=== PATIENT | female | born 1960 | race Caucasian/White ===

== ENCOUNTER 2017-05-27 11:10 | Emergency (ER) | payer OTHER ==
[~2017-05-27] VITALS: Ht 165.1 cm; Wt 61.4 kg
[2017-05-27] MEDS ORDERED: ONDANSETRON (ODT) 4 MG TAB ODT STA (11:17)
[2017-05-27 11:19] VITALS: Ht 165.1 cm; Wt 61.4 kg
[2017-05-27] MEDS ORDERED: morphine 10 MG INJ IM ONE (11:30)
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
--- NOTE | 2017-05-27 12:28 | RADRPT ---
PROCEDURE: XR Ankle. CLINICAL INDICATION: Ankle pain TECHNIQUE: Three views of the right ankle are available for review COMPARISON: None available FINDINGS: There is no acute osseous or articular abnormality. No evidence for fracture. Bone mineral density is diminished. The articular surfaces are smooth without evidence of marginal erosions. Enthesopath ic changes seen about the calcaneus. Os peroneum. The soft tissues are intact without evidence of ca lcifications. IMPRESSION: 1. Decreased bone mineral density without radiographic evidence for fracture. RPTAT: HH .Ronny Wright MD, MD Date Time Electronically viewed and signed by .Ronny Wright MD, on 05/27/2017 12:28 .d/
--- NOTE | 2017-05-27 12:44 | RADRPT ---
PROCEDURE: US Lower extremity Venous. CLINICAL INDICATION: Lower extremity pain and swelling TECHNIQUE: Multiple sonographic images of the right lower extremity deep venous system was obtaine d utilizing grayscale, color-flow, compressive sonography and doppler imaging with augmentation. Th e images were reviewed on a PACS workstation. COMPARISON: None. FINDINGS: There is normal compressibility and flow within the right common femoral, superficial femoral and po pliteal veins. Compressibility is seen in the posterior tibial and peroneal veins. IMPRESSION: No sonographic evidence for deep venous thrombosis. RPTAT: AA .Deo Stanford MD, Date Time Electronically viewed and signed by .Deo Stanford MD, on 05/27/2017 12:44 .P/
[2017-05-27] MEDS ORDERED: morphine 4 MG/ML VIAL IV STA (13:02)
[2017-05-27] MEDS ORDERED: SOD CHLORIDE 0.9% 1,000 ML IV STA (13:02)
[2017-05-27] MEDS ORDERED: ONDANSETRON 4 MG INJ IV STA ×2 (13:02→14:34)
[2017-05-27 13:31] LABS: BASOPHILS % 0.2 % (0.0-2.0); HEMATOCRIT 40.8 % (37.0-47.0); HEMOGLOBIN 13.7 g/dl (12.0-16.0); LYMPHOCYTES % 8.4 % (15.0-51.0); MEAN CORPUSCULAR HEMOGLOBIN 27.7 pg (29.0-33.0); MEAN CORPUSCULAR HGB CONC 33.6 g/dl (32.0-37.0); MEAN CORPUSCULAR VOLUME 82.4 fl (82.0-101.0); MEAN PLATELET VOLUME 9.2 fl (7.4-10.4); MONOCYTE # 0.1 10^3/ul (0.3-0.9); MONOCYTES % 0.7 % (0.0-11.0); NEUTROPHIL # 10.9 10^3/ul (1.6-7.5); NEUTROPHILS % 90.2 % (39.0-77.0); PLATELET COUNT 324 10^3/UL (140-415); RED BLOOD COUNT 4.95 10^6/ul (4.20-5.40); RED CELL DISTRIBUTION WIDTH 13.8 % (11.5-14.5); WHITE BLOOD COUNT 12.1 10^3/ul (4.8-10.8)
[2017-05-27 13:38] LABS: ADD UMIC YES; UR ASCORBIC ACID 40 mg/dL (NEGATIVE); UR BILIRUBIN (Dip) NEGATIVE (NEGATIVE); UR BLOOD (Dip) 1+ mg/dL (NEGATIVE); UR CLARITY CLEAR (CLEAR); UR COLOR YELLOW (YELLOW); UR GLUCOSE (Dip) NEGATIVE (NEGATIVE); UR KETONES (Dip) TRACE mg/dL (NEGATIVE); UR LEUKOCYTE ESTERASE (Dip) TRACE Leu/ul (NEGATIVE); UR NITRITE (Dip) NEGATIVE (NEGATIVE); UR RBC 5 /HPF (0-5); UR SPECIFIC GRAVITY (Dip) 1.028 (1.003-1.030); UR SQUAMOUS EPITHELIAL CELL FEW /HPF (FEW); UR TOTAL PROTEIN (Dip) 2+ mg/dl (NEGATIVE); UR UROBILINOGEN (Dip) NEGATIVE (NEGATIVE)
[2017-05-27 13:44] LABS: CALCIUM 9.5 mg/dl (8.4-10.2); CREATININE 0.72 mg/dl (0.44-1.00); POTASSIUM 3.6 mmol/L (3.5-5.1)
[2017-05-27] MEDS ORDERED: IBUP-1542 PO (14:07)
[2017-05-27] MEDS ORDERED: OXYC-209 PO (14:07)
[2017-05-27] MEDS ORDERED: KETOROLAC 30 MG INJ IV STA (14:10)
[2017-05-27] MEDS ORDERED: HYDROmorphONE 1 MG/ML SYG IV STA (14:34)
[2017-05-27 15:01] VITALS: TEMP 98.4
--- NOTE | 2017-05-27 15:52 | RADRPT ---
PROCEDURE: XR Knee. CLINICAL INDICATION: Injury TECHNIQUE: Three views of the right knee are available for review. COMPARISON: None available FINDINGS: The knee is poorly assessed due to position, particularly the femorotibial compartments. The patello femoral compartment grossly preserved. There is a nondisplaced fracture mid tibial diaphyseal fractu re, partially assessed. Bone mineral density is decreased. Soft tissues are grossly within normal li mits. IMPRESSION: 1. Partially assessed mid tibial diaphyseal fracture. 2. Decreased bone mineral density. 3. Incomplete assessment of the knee due to position. RPTAT: HH .Ronny Wright MD, MD Date Time Electronically viewed and signed by .Ronny Wright MD, on 05/27/2017 15:52 .d/
[2017-05-27 16:21] VITALS: BP 154/89; PULSE 88; RESP 10
[2017-05-27] MEDS ORDERED: LORAZEPAM 2 MG INJ IV ONE (16:30)
--- NOTE | 2017-05-30 07:50 | RADRPT ---
PROCEDURE: XR Tibia and Fibula. CLINICAL INDICATION: Right lower leg pain TECHNIQUE: 3 views of the right tibia and fibula are available for review. COMPARISON: None available FINDINGS: There is normal mineralization and alignment of the bones of the right tibia and fibula. There is a nondisplaced transverse fracture through the mid tibia. No other fractures are identified. The sub optimally visualized joint spaces appear grossly within normal limits. The soft tissues are unremar kable. IMPRESSION: 1. Nondisplaced right mid tibial fracture. RPTAT: KK .Tyron Horta MD, Date Time Electronically viewed and signed by .Tyron Horta MD, on 05/27/2017 12:12 .B/
== END 2017-05-27 17:08 | disposition home or self-care (01) ==
LOC: FTE 11:10
DX: S82.201A Unspecified fracture of shaft of right tibia, initial encounter for closed fracture (principal); I10 Essential (primary) hypertension; W22.09XA Striking against other stationary object, initial encounter; Y92.9 Unspecified place or not applicable
CPT/HCPCS: 29505; 36415; 73562; 73590; 73610; 80048; 81001; 82550; 85025; 93971; 96372; 96374; 96375; 96376; J1170; J1885; J2270; J2405; J7030; Z7502; Z7610